=== PATIENT | male | born 1950 | race Caucasian/White ===

== ENCOUNTER 2017-02-18 10:02 | Inpatient (IN) ==
[2017-02-18] MEDS ORDERED: NS 1,000 ML IV ONE (10:14)
[2017-02-18] MEDS ORDERED: CARDIZEM IV ONE (10:14)
--- NOTE | 2017-02-18 10:34 | Diag Imaging Result Doc PS360 ---
EXAM: CHEST-PORTABLE HISTORY: CP TECHNIQUE: Portable upright COMPARISON: None. FINDINGS: The lungs are well expanded. The heart is not enlarged. The vessels are not distended. No pneumonia. No pleural effusions identified. IMPRESSION: Negative chest. Electronically signed by Theodore Chen 02/18/2017 10:32 AM
[2017-02-18 11:03] LABS: MANUAL DIFF NEEDED? NO
[2017-02-18 11:06] LABS: BASO% 0.7 % (0.0-0.8); EOS# 0.06 X1000 (0.0-0.7); HEMATOCRIT 43.6 % (42.0-52.0); HEMOGLOBIN 15.3 g/dL (14.0-18.0); LYMPH# 1.67 X1000 (1.2-3.4); LYMPH% 28.6 % (20.5-51.1); MCH 31.5 PG (27-31); MCHC 35.1 g/dL (33-37); MCV 89.7 FL (81-99); MONO# 0.79 X1000 (0.11-0.59); MONO% 13.6 % (1.7-9.3); MPV 11.2 FL (7.4-10.4); NEUT% 56.1 % (42.2-75.2); PLT 179 X1000 (130-400); RBC 4.86 XMIL (4.7-6.1)
[2017-02-18 11:23] LABS: ALBUMIN 4.2 g/dL (3.5-5.0); CALCIUM 9.1 mg/dL (8.8-10.2); POTASSIUM 3.8 mmol/L (3.5-5.1); TOTAL BILIRUBIN 1.14 mg/dL (0.20-1.00); TOTAL PROTEIN 6.9 g/dL (6.3-8.3)
[2017-02-18 11:45] LABS: INR 1.01; PROTIME 10.6 Seconds (9.2-11.7); PTT 29.6 Seconds (22.0-36.0)
--- NOTE | 2017-02-18 12:15 | PROVIDER DOCUMENTATION ---
This chart was entered by Radha Camacho Scribe, acting as scribe for Angela Mazariegos MD. HPI-Chest Pain - General Chief Complaint: Chest Pain Stated Complaint: CHEST PAIN Time Seen by Provider: 02/18/17 10:05 Source: patient Allergies/Adverse Reactions: Patient Allergies Allergy/AdvReac Type Severity Reaction Status Date / Time codeine Allergy "swell up" Verified 02/18/17 10:15 Home Medications: Home Medication List Medication Instructions Recorded Confirmed Last Taken Type Allopurinol 100 mg PO DAILY 09/02/14 02/18/17 09/06/14 07:00 History Amlodipine Besylate 5 mg PO DAILY 09/02/14 02/18/17 02/18/17 05:30 History Aspirin 81 mg PO DAILY 09/02/14 02/18/17 02/18/17 05:30 History Levothyroxine Sodium 200 mcg PO DAILY 09/02/14 02/18/17 02/17/17 History Alfuzosin HCl [Alfuzosin HCl ER] 10 mg PO DAILY 09/06/14 02/18/17 02/18/17 05: 30 History Losartan/Hydrochlorothiazide 1 each PO DAILY 02/18/17 02/18/17 02/18/17 05:30 History [Hyzaar 100-12.5 Tablet] - History of Present Illness-CP Nature of Presenting Problem: 66 yo M presents to the ER with complaint of sudden onset of chest pressure/ heaviness this morning while at work. Pt states he felt light headed and like she was going to pass out. Pt is an EMT. Denies SOB or nausea, denies any hx of a-fib or cardiac history. States he does not feel lightheaded anymore but still has chest heaviness. Quality of Pain: reports: pressure Onset/Duration: 1 hour ago Associated Symptoms: reports: diaphoresis. denies: nausea, shortness of breath Nitro Today/Relief: 0.4 mg x 1, provided by EMS Aspirin Treatment Today: 81 mg x 1, provided by EMS Prior Chest Pain/Cardiac Workup: reports: no prior chest pain, no prior cardiac workup Review of Systems - Adult - REVIEW OF SYSTEMS - ADULT Constitutional: denies: chills, fever Eyes: reports: no symptoms reported Ears, Nose, Mouth & Throat: reports: no symptoms reported Cardiovascular: reports: chest pain. denies: palpitations Respiratory: denies: cough, shortness of breath Gastrointestinal: denies: abdominal pain, diarrhea, nausea, vomiting Genitourinary: reports: no symptoms reported Musculoskeletal: reports: no symptoms reported Integumentary: reports: no symptoms reported Neurological: reports: no symptoms reported Psychiatric: reports: no symptoms reported Endocrine: reports: no symptoms reported Hematologic/Lymphatic: reports: no symptoms reported Allergic/Immunologic: reports: no symptoms reported All Other Systems: Reviewed and Negative Past History - Adult - PAST MEDICAL HISTORY-ADULT Review of Records: reports: Nursing Assessment Review, Medications Reviewed Cardiovascular: reports: HTN Respiratory: reports: sleep apnea Endocrine/Immune: reports: thyroid disorder - PRIOR SURGERIES/PROCEDURES Surgical/Procedure History: reports: hernia repair - IMMUNIZATION STATUS Childhood Immunizations: See Nurse Assessment Flu Vaccine: See Nurse Assessment Physical Exam-General - PHYSICAL EXAM-ADULT Initial Vital Signs Reviewed: Yes - CONSTITUTIONAL General Appearance: alert, no apparent distress, obese - EYES Eyes: PERRL/EOMI, pink conjunctivae - HEAD, EARS, NOSE, MOUTH & THROAT HENMT: normocephalic/atraumatic, normal ENT inspection, TMs normal, pharynx normal - NECK Neck: supple, normal inspection - RESPIRATORY Respiratory: chest non-tender, lungs clear, no respiratory distress, no accessory muscle use - CARDIOVASCULAR Cardiovascular: normal peripheral pulses, no edema, tachycardia - GASTROINTESTINAL (ABDOMEN) Abdominal Exam: normal bowel sounds, non tender, soft - MUSCULOSKELETAL Back Exam: no CVA tenderness, no vertebral tenderness Extremity: normal gait, normal inspection - SKIN Integumentary: normal color, warm/dry - NEUROLOGIC Neurologic: grossly normal, no motor/sensory deficits - PSYCHIATRIC Psych/Mental Status: normal mood/affect, normal thought content, normal thought process, oriented x 3 Progress - PLAN OF CARE/RESULTS Progress/Plan/Lab Results: Vital Signs - 8 hr 02/18/17 10:14 02/18/17 12:00 Temperature 97.5 F L Pulse Rate 137 H 60 Respiratory Rate 22 19 Blood Pressure 139/109 101/67 O2 Sat by Pulse Oximetry 98 98 Laboratory Results - last 24 hr 02/18/17 02/18/17 02/18/17 10:50 10:50 10:50 WBC RBC Hgb Hct MCV MCH MCHC RDW Std Deviation Plt Count MPV Immature Gran % (Auto) Neut % (Auto) Lymph % (Auto) Humphreys % (Auto) Eos % (Auto) Baso % (Auto) Immature Gran # (Auto) Neut # (Auto) Lymph # (Auto) Humphreys # (Auto) Eos # (Auto) Baso # (Auto) PT 10.6 INR 1.01 PTT (Actin FS) 29.6 D-Dimer Sodium Potassium Chloride Carbon Dioxide Anion Gap BUN Creatinine Estimated GFR/1.73 m2 BUN/Creatinine Ratio Glucose Calculated Osmolality Calcium Magnesium 2.0 Total Bilirubin AST ALT Alkaline Phosphatase Troponin T Bur-Y-Nltjgbqzosj Pept 10 Total Protein Albumin Globulin Albumin/Globulin Ratio 02/18/17 02/18/17 02/18/17 10:50 10:50 10:50 WBC RBC Hgb Hct MCV MCH MCHC RDW Std Deviation Plt Count MPV Immature Gran % (Auto) Neut % (Auto) Lymph % (Auto) Humphreys % (Auto) Eos % (Auto) Baso % (Auto) Immature Gran # (Auto) Neut # (Auto) Lymph # (Auto) Humphreys # (Auto) Eos # (Auto) Baso # (Auto) PT INR PTT (Actin FS) D-Dimer < 0.10 Sodium 141 Potassium 3.8 Chloride 103 Carbon Dioxide 25 Anion Gap 13 BUN 19 Creatinine 1.4 H Estimated GFR/1.73 m2 51 BUN/Creatinine Ratio 14 Glucose 97 Calculated Osmolality 283 Calcium 9.1 Magnesium Total Bilirubin 1.14 H AST 20 ALT 24 Alkaline Phosphatase 79 Troponin T < 0.010 Swv-X-Pcbusfgvezu Pept Total Protein 6.9 Albumin 4.2 Globulin 2.7 Albumin/Globulin Ratio 1.6 02/18/17 10:50 WBC 5.83 RBC 4.86 Hgb 15.3 Hct 43.6 MCV 89.7 MCH 31.5 H MCHC 35.1 RDW Std Deviation 12.9 Plt Count 179 MPV 11.2 H Immature Gran % (Auto) 0.0 Neut % (Auto) 56.1 Lymph % (Auto) 28.6 Humphreys % (Auto) 13.6 H Eos % (Auto) 1.0 Baso % (Auto) 0.7 Immature Gran # (Auto) 0.00 Neut # (Auto) 3.27 Lymph # (Auto) 1.67 Humphreys # (Auto) 0.79 H Eos # (Auto) 0.06 Baso # (Auto) 0.04 PT INR PTT (Actin FS) D-Dimer Sodium Potassium Chloride Carbon Dioxide Anion Gap BUN Creatinine Estimated GFR/1.73 m2 BUN/Creatinine Ratio Glucose Calculated Osmolality Calcium Magnesium Total Bilirubin AST ALT Alkaline Phosphatase Troponin T Rtc-Y-Kkktadecdan Pept Total Protein Albumin Globulin Albumin/Globulin Ratio Orders Category Date Time Status Cardiac Monitoring DIRECTED Care 02/18/17 10:13 Active Saline Loc NOW Care 02/18/17 10:13 Active CHEST-PORTABLE [RAD] Stat Exams 02/18/17 10:14 Completed CBC WITH ELECTRONIC DIFF [HEME] Stat Lab 02/18/17 10:50 Completed COMPREHENSIVE METABOLIC PANEL [CHEM] Stat Lab 02/18/17 10:50 Completed D-DIMER [CHEM] Stat Lab 02/18/17 10:50 Completed MAGNESIUM [CHEM] Stat Lab 02/18/17 10:50 Completed PRO B-NATRIURETIC PEPTIDE Stat Lab 02/18/17 10:50 Completed PROTIME WITH INR [COAG] Stat Lab 02/18/17 10:50 Completed PTT [COAG] Stat Lab 02/18/17 10:50 Completed TROPONIN T Stat Lab 02/18/17 10:50 Completed 0.9% Sodium Chloride Inj [Ns] 1,000 ml Med 02/18/17 10:14 Discontinued IV 999 mls/hr Diltiazem [Cardizem] Med 02/18/17 10:14 Discontinued 10 mg IV NOW ONE EKG [EKG] Stat Ther 02/18/17 10:07 Ordered EKG [EKG] Stat Ther 02/18/17 10:22 Ordered Laboratory Tests 02/18/17 02/18/17 02/18/17 10:50 10:50 10:50 WBC RBC Hgb Hct MCV MCH MCHC RDW Std Deviation Plt Count MPV Immature Gran % (Auto) Neut % (Auto) Lymph % (Auto) Humphreys % (Auto) Eos % (Auto) Baso % (Auto) Immature Gran # (Auto) Neut # (Auto) Lymph # (Auto) Humphreys # (Auto) Eos # (Auto) Baso # (Auto) PT 10.6 INR 1.01 PTT (Actin FS) 29.6 D-Dimer Sodium Potassium Chloride Carbon Dioxide Anion Gap BUN Creatinine Estimated GFR/1.73 m2 BUN/Creatinine Ratio Glucose Calculated Osmolality Calcium Magnesium 2.0 Total Bilirubin AST ALT Alkaline Phosphatase Troponin T Mkl-T-Pvkxqvnacqj Pept 10 Total Protein Albumin Globulin Albumin/Globulin Ratio 02/18/17 02/18/17 02/18/17 10:50 10:50 10:50 WBC RBC Hgb Hct MCV MCH MCHC RDW Std Deviation Plt Count MPV Immature Gran % (Auto) Neut % (Auto) Lymph % (Auto) Humphreys % (Auto) Eos % (Auto) Baso % (Auto) Immature Gran # (Auto) Neut # (Auto) Lymph # (Auto) Humphreys # (Auto) Eos # (Auto) Baso # (Auto) PT INR PTT (Actin FS) D-Dimer < 0.10 Sodium 141 Potassium 3.8 Chloride 103 Carbon Dioxide 25 Anion Gap 13 BUN 19 Creatinine 1.4 H Estimated GFR/1.73 m2 51 BUN/Creatinine Ratio 14 Glucose 97 Calculated Osmolality 283 Calcium 9.1 Magnesium Total Bilirubin 1.14 H AST 20 ALT 24 Alkaline Phosphatase 79 Troponin T < 0.010 Avk-T-Xsmhilqlvgh Pept Total Protein 6.9 Albumin 4.2 Globulin 2.7 Albumin/Globulin Ratio 1.6 02/18/17 10:50 WBC 5.83 RBC 4.86 Hgb 15.3 Hct 43.6 MCV 89.7 MCH 31.5 H MCHC 35.1 RDW Std Deviation 12.9 Plt Count 179 MPV 11.2 H Immature Gran % (Auto) 0.0 Neut % (Auto) 56.1 Lymph % (Auto) 28.6 Humphreys % (Auto) 13.6 H Eos % (Auto) 1.0 Baso % (Auto) 0.7 Immature Gran # (Auto) 0.00 Neut # (Auto) 3.27 Lymph # (Auto) 1.67 Humphreys # (Auto) 0.79 H Eos # (Auto) 0.06 Baso # (Auto) 0.04 PT INR PTT (Actin FS) D-Dimer Sodium Potassium Chloride Carbon Dioxide Anion Gap BUN Creatinine Estimated GFR/1.73 m2 BUN/Creatinine Ratio Glucose Calculated Osmolality Calcium Magnesium Total Bilirubin AST ALT Alkaline Phosphatase Troponin T Wnk-J-Pmjormelxsn Pept Total Protein Albumin Globulin Albumin/Globulin Ratio Result Diagrams: 02/18/17 10:50 02/18/17 10:50 - EKG 1 Time of EKG reading by physician:: 09:58 EKG Read and Signed by:: Lanny Vazquez EKG Interpretation (*Must complete 3 of following elements*): Abnormal Rate: 145 Rhythm: a-fib with RVR Randolph: normal QRS: RBB (incomplete) CT Interval: normal ST Wave: non-specific ST changes (ST&T wave abnormality, consider lateral ischemia) 2 Time of EKG reading by physician:: 10:12 EKG Read and Signed by:: Angela Mazariegos EKG Interpretation (*Must complete 3 of following elements*): Abnormal Rate: 91 Rhythm: normal sinus rhythm Randolph: normal QRS: normal CT Interval: normal ST Wave: non-specific ST changes - XRAY 1 XRAY Study: Chest Impression: Normal (negative chest, per radiologist) - CONSULTS/PCP/HOSPITALIST Notification #1 *Consult/PCP/Hospitalist*: Hospitalist, DR Recio Time Discussed: 12:06 Consult Disposition: Admit Departure - Departure Date of Disposition Decision: 02/18/17 Time of Disposition Decision: 12:13 DIAGNOSIS: Pre-syncope, Unstable angina, New onset a-fib Disposition: ADMITTED INPATIENT 09 Certified Medical Emergency: Emergent Condition: Fair Referrals and Follow-Ups: Ifeanyi Ramirez MD [Primary Care Provider] - - Critical Care Note This patient required my direct & personal management of CC.: No Comments: pt on presentation was in Afib with RVR converted back to NSR in its own had another brief episode of afib and currently in NSR, will hold off on cardizem given bolus of fluids and needs to be admitted for further evalaution This chart was documented by the indicated scribe, (Radha Camacho Scribe) and accurately reflects the services I performed and decisions made by me, Angela Mazariegos MD, as attested by the provider's signature.
--- NOTE | 2017-02-18 12:34 | EKG Report ---
Test Performed on : 02/18/2017 10:12:15 AM Test Reason : repeat for cp Blood Pressure : / mmHG Vent. Rate : 091 BPM Atrial Rate : 091 BPM P-R Int : 144 ms QRS Dur : 104 ms QT Int : 368 ms P-R-T Axes : 024 -06 092 degrees QTc Int : 452 ms Normal sinus rhythm. Nonspecific ST and T wave abnormality Abnormal ECG When compared with ECG of 18-FEB-2017 09:58, (Unconfirmed) Sinus rhythm. has replaced Atrial fibrillation. Vent. rate has decreased BY [address] no longer depressed in Anterior leads Nonspecific T wave abnormality no longer evident in Inferior leads T wave inversion less evident in Lateral leads Unconfirmed Result
--- NOTE | 2017-02-18 12:34 | EKG Report ---
Test Performed on : 02/18/2017 09:58:01 AM Test Reason : Chest Pain Blood Pressure : / mmHG Vent. Rate : 145 BPM Atrial Rate : 153 BPM P-R Int : 000 ms QRS Dur : 106 ms QT Int : 338 ms P-R-T Axes : 000 001 129 degrees QTc Int : 525 ms Atrial fibrillation. with rapid ventricular response. Incomplete right bundle branch block ST \T\ T wave abnormality, consider lateral ischemia Abnormal ECG When compared with ECG of 01-FEB-2014 10:55, Atrial fibrillation. has replaced Sinus rhythm. Vent. rate has increased BY [address] now depressed in Anterolateral leads Nonspecific T wave abnormality now evident in Inferior leads T wave inversion now evident in Lateral leads Unconfirmed Result
[2017-02-18] MEDS ORDERED: LOVENOX 1 MG/KG SUBQ SCH (13:00)
[2017-02-18] MEDS ORDERED: SYNTHROID PO ONE ×2 (13:02→13:45)
[2017-02-18] MEDS: LOVENOX SUBQ SCH (14:02)
[2017-02-18 14:30] LABS: BILIRUBIN URINE NEGATIVE (NEGATIVE); BLOOD URINE NEGATIVE (NEGATIVE); COLOR YELLOW; GLUCOSE URINE TRACE mg/dL (NEGATIVE); LEUKOCYTES URINE NEGATIVE (NEGATIVE); NITRITE URINE NEGATIVE (NEGATIVE); PROTEIN URINE NEGATIVE (NEGATIVE); TURBIDITY URINE CLEAR (CLEAR); URINE MICRO REVIEW NEEDED? NO; UROBILINOGEN URINE NORMAL (NORMAL)
[2017-02-18 14:31] LABS: UR EPITHELIAL CELLS <10 /HPF (<10); URINE BACTERIA NEGATIVE /HPF; URINE CULTURE NEEDED? NO; URINE RBC <10 /HPF (<10); URINE WBC <10 /HPF (<10)
[2017-02-18 14:42] LABS: URINE SOURCE CLEAN CATCH
[2017-02-18] MEDS ORDERED: ASPIRIN PO ONE (14:45)
--- NOTE | 2017-02-18 15:12 | CONSULTATION ---
DATE OF CONSULTATION: 02/18/2017 INDICATION: Chest pain. New onset atrial fibrillation. HISTORY OF PRESENT ILLNESS: Mr. 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 He apparently noted some diaphoresis at that time as well. He had an EKG performed at that time, as he works as an sales route driver and was found to be in new onset atrial fibrillation. He presented for evaluation. He has no bleeding history. He has no recent previous episodes of chest pain. He has no orthopnea. PAST MEDICAL HISTORY: 1. Significant for hypertension. 2. Gout. 3. BPH. 4. Hypothyroidism. SOCIAL HISTORY: No current tobacco use. FAMILY HISTORY: Significant for hypertension. REVIEW OF SYSTEMS: A 10 system review of systems is negative except for those things mentioned in HPI. PHYSICAL EXAMINATION: Vital signs: Afebrile. Heart rate currently is 55, blood pressure 102/64. Generally: No acute distress. HEENT: Oropharynx is moist. Normal dentition. Eye examination is pink conjunctivae. White sclerae. Neck: Examination shows no obvious thyromegaly or thyroid tenderness. Cardiovascular: He is in a regular rate and rhythm. No obvious murmurs. No S3. No lower extremity edema. Chest: Clear bilaterally. No increased work of breathing. Abdomen: Soft, nontender, nondistended. No obvious organomegaly. Skin: Warm and dry throughout without any rashes. Neurological: Moving all extremities well. Cranial nerves 2 through 12 are intact without any sensation deficits. Psychiatric: Alert, oriented, pleasant. Normal mood and affect. PERTINENT DATA: He had an EKG performed. Most recently he showed sinus rhythm, with no signs of ischemic changes or evidence for infarct. Previous EKG demonstrated atrial fibrillation, rate of 145 beats per minute. Mild ST depression is noted in the lateral leads. His chest x-ray here demonstrated that it was unremarkable. Laboratory data shows a white count of 5.8, hematocrit 43.6, platelet count 179,000. INR is 1.01. D-dimer is negative, sodium 141, potassium 3.8, BUN is 19, creatinine is 1.4, total bilirubin 1.14. Cardiac enzymes negative. Urinalysis was unremarkable. ASSESSMENT: 1. New onset atrial fibrillation. 2. Chest pain. PLAN: We will proceed with echo and myocardial perfusion imaging in the morning. I have administered a one-time dose of aspirin. He has been placed on Lovenox per the primary team. If myocardial perfusion scan is unremarkable, then he may be discharged later tomorrow. I have already discussed anticoagulation with the patient, which I believe is appropriate given his CHADS- VASc score of 2 (age of 66 and hypertension). Risks, benefits and alternatives to anticoagulation have been discussed with the patient. He agrees to proceed. Likely we would choose Eliquis and discontinue the aspirin long-term if the nuclear scan is unremarkable. We will decide on rate control with medications tomorrow. His heart rate may be artificially slowed secondary to the medication he received here in the ER. cc: Jose Cruz Zamarripa MD
[2017-02-18] MEDS ORDERED: TYLENOL PO PRN (15:51)
[2017-02-18] MEDS ORDERED: ZOFRAN IV PRN (15:51)
[2017-02-18 16:06] LABS: FREE T4 1.27 ng/dL (0.93-1.70)
[2017-02-18 16:33] LABS: UR CREAT RANDOM 74.6 mg/dL (14-26)
[2017-02-18] MEDS: PRILOSEC PO SCH (20:14)
--- NOTE | 2017-02-18 20:53 | HISTORY AND PHYSICAL ---
PRIMARY CARE PROVIDER: Dr. Ifeanyi Ramirez. CHIEF COMPLAINT: [place] like something was sitting on his chest. Got lightheaded and sweaty, with shortness of breath. HISTORY OF PRESENT ILLNESS: Mr. Tony Case is a 66-year-old morbidly obese, male with a medical history of obstructive sleep apnea who wears CPAP, hypertension, but essentially no other medical history. According to him and his , he has noticed more shortness of breath over the past week with lower extremity swelling. He went to Dr. Ramirez's who ordered an echocardiogram which has not been performed yet. He is retired and he was doing some work with EMS [facility] and apparently they were outside [facility] and the ambulance and he felt like he got too hot. He came inside and felt like something was sitting on his chest. He got lightheaded, but did not pass out, felt like he could not catch his breath and he was diaphoretic. The EMS placed him on a bus driver/monitor which showed atrial fibrillation with RVR and he was brought via EMS. Apparently when he is in the ER, Cardizem was ordered, but not administered. He went into atrial fibrillation with RVR with a rate of up to 130s at 2 different times, but converted on his own to normal sinus rhythm in the 60s. His blood pressure is maintained in low 100s. He denies any fever or chills. Otherwise, no other complaints. He just has over the past week started feeling more weak and short of breath with lower extremity swelling. We will admit to [facility] and consult Cardiology. PAST MEDICAL HISTORY: 1. Obstructive sleep apnea on CPAP. 2. Hypertension. 3. Benign prostatic hypertrophy. 4. Hypothyroidism. He also states that he has been out of his Synthroid 200 mcg for the last 2 days. SURGICAL HISTORY: A lesion on the right leg removed. Umbilical hernia repair in 1977. Recently an ORIF of the left ankle. SOCIAL HISTORY: He uses smokeless tobacco, 1 can every 3 days. Denies alcohol or illicit drug use. 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 He is . FAMILY HISTORY: Father at the age of 67 due to an acute DC. Mother at 76 due to respiratory failure. Otherwise, no other medical history in the family. REVIEW OF SYSTEMS: Fourteen point review of systems were complete and all were negative except for those mentioned above HPI. He denies any complaints at this time. ALLERGIES: Codeine. HOME MEDICATIONS: 1. Alfuzosin 10 HCL 10 mg p.o. daily. 2. Allopurinol 100 mg p.o. daily. 3. Amlodipine besylate 5 mg p.o. daily. 4. Aspirin 81 mg p.o. daily. 5. Synthroid 200 mcg p.o. daily. 6. Losartan hydrochlorothiazide 1 tab 100 mg-12.5 mg p.o. daily. PHYSICAL EXAMINATION: VITAL SIGNS: Temperature 97.5 degrees, heart rate 60. When he was in atrial fibrillation he went up to 137 as documented. Blood pressure 101/67, respiratory rate 19, O2 saturation 98% on room air. He is 5 feet 7 inches tall, 280 pounds, BMI 43.9. GENERAL: Mr. Tony Case is a 66-year-old male, he is in no acute distress. He is able to answer questions appropriately. HEENT: Atraumatic, normocephalic. Pupils equal, round, reactive to light. Extraocular movements intact. Mucous membranes moist. NECK: No JVD or carotid bruits noted at 45 degree angle. CARDIOVASCULAR: S1, S2. Regular rate and rhythm. No rubs, gallops, or murmurs. PULMONARY: Clear to auscultation. Bilateral breath sounds. No accessory muscle use or work of breathing noted. GI: Round, obese, soft, nontender. Positive bowel sounds x4. EXTREMITIES: +1 lower extremity knee to foot edema noted. He has got +2 dorsalis and radial pulses. NEUROLOGIC: Alert and oriented x4. Moves all extremities equally. SKIN: Warm, dry, intact. LABORATORY DATA: White blood cells 5000, hemoglobin 15, hematocrit 43, platelet count 179,000. INR 1.06. PTT is 29.6. D-dimer less than 0.1, sodium 141, potassium 3.8, BUN 19, creatinine 1.4. Glucose 97, magnesium 2, total bilirubin is 1.14. AST 20, ALT 24. Troponin less than 0.01. ProBNP 10. IMAGING: EKG most recently showed a normal sinus rhythm with a rate of 91, QTc is 452. On admit he had atrial fibrillation with RVR rate of 145. Chest x-ray negative for any acute findings. The heart is not enlarged. ASSESSMENT AND PLAN: 1. New onset paroxysmal atrial fibrillation with rapid ventricular response, now in sinus rhythm without chemical conversion. Apparently, he when and atrial fibrillation 2 different times. We will consult Cardiology. Cardiac enzymes are negative. It does not appear that he has enlarged heart on the chest x-ray. ProBNP is normal. Electrolytes: Potassium 3.8, magnesium 2. I will go ahead and order weight-based Lovenox q.12 hours and follow up with Cardiology recommendations. We will transfer to [facility]. 2. History of hypertension, currently his blood pressure is on the low side in the low 100s. At home he takes amlodipine 5 mg p.o. daily. He also takes a Hyzaar daily. We will hold the Hyzaar and monitor blood pressure closely. 3. Hypothyroidism. He has been without his Synthroid for 2 days now. I will give a dose today and resume it daily. Follow up with thyroid stimulating hormones and T4. 4. Benign prostatic hypertrophy. Continue home medications. 5. Obstructive sleep apnea. Continue with nightly CPAP. 6. Tobacco abuse cessation discussed. 7. Morbid obesity with a body mass index of 43.9, diet and exercise recommended. 8. Gastrointestinal prophylaxis. Proton pump inhibitor. Dictated by LORA Muñoz for Barbara Recio MD cc: LORA Muñoz MD Gregory S. Cheatham, MD The patient was seen and examined by me. I agree with the assessment and plan as dictated. [facility]
[2017-02-19] MEDS: LOVENOX SUBQ SCH ×2 (04:23→16:09)
[2017-02-19 05:04] LABS: MANUAL DIFF NEEDED? NO
[2017-02-19 05:07] LABS: BASO% 0.7 % (0.0-0.8); EOS% 1.7 % (0.0-10.0); HEMATOCRIT 42.2 % (42.0-52.0); HEMOGLOBIN 14.4 g/dL (14.0-18.0); LYMPH% 35.4 % (20.5-51.1); MCHC 34.1 g/dL (33-37); MCV 90.9 FL (81-99); MONO# 0.78 X1000 (0.11-0.59); MONO% 13.2 % (1.7-9.3); MPV 11.4 FL (7.4-10.4); PLT 174 X1000 (130-400); RBC 4.64 XMIL (4.7-6.1)
[2017-02-19 05:20] LABS: INR 1.03; PROTIME 10.8 Seconds (9.2-11.7); PTT 33.1 Seconds (22.0-36.0)
[2017-02-19 05:25] LABS: AGAP 11; ALKALINE PHOSPHATASE 74 U/L (32-122); BUN 22 mg/dL (8-22); CALCIUM 8.8 mg/dL (8.8-10.2); CHLORIDE 103 mmol/L (98-107); COSMO 289; GOT 16 U/L (10-34); GPT 21 U/L (10-44); HDL 41 mg/dL (35-55); LDL 80 mg/dL; MAGNESIUM 1.9 mg/dL (1.5-2.7); POTASSIUM 3.8 mmol/L (3.5-5.1); SODIUM 143 mmol/L (136-145); TCO2 29 mmol/L (25-35); TOTAL BILIRUBIN 1.07 mg/dL (0.20-1.00); TOTAL PROTEIN 6.3 g/dL (6.3-8.3); TRIGLYCERIDES 180 mg/dL (39-160); VLDL 36 mg/dL
--- NOTE | 2017-02-19 07:10 | Diag Imaging Result Doc PS360 ---
EXAM: CHEST-PORTABLE HISTORY: sob TECHNIQUE: AP portable at 0500 COMMENT: There is no evidence of acute cardiac or pulmonary disease. Compared to 02/18/2017 there is been no significant change in the appearance of the chest. IMPRESSION: Stable chest. Electronically signed by Gume Chandler 02/19/2017 7:08 AM
--- NOTE | 2017-02-19 07:23 | EKG Report ---
Test Performed on : 02/19/2017 06:15:49 AM Test Reason : afib, cp Blood Pressure : / mmHG Vent. Rate : 048 BPM Atrial Rate : 048 BPM P-R Int : 188 ms QRS Dur : 112 ms QT Int : 448 ms P-R-T Axes : 046 014 074 degrees QTc Int : 400 ms Sinus bradycardia. Incomplete right bundle branch block Cannot rule out Anterior infarct , age undetermined Abnormal ECG When compared with ECG of 18-FEB-2017 10:12, (Unconfirmed) Vent. rate has decreased BY 43 BPM QT has shortened Confirmed by Pearl Anthony MD ([id number]) on 02/19/2017 12:28:24 PM
--- NOTE | 2017-02-19 08:57 | PROGRESS NOTE ---
DATE: 02/19/2017 SUBJECTIVE: SUBJECTIVE: Patient reports he has been doing well. No chest pain. No heart racing overnight. PHYSICAL EXAMINATION: Vital signs: Afebrile. His heart rate has been in the 40s to 50s. His blood pressure is 127/71. General: No acute distress. Cardiovascular: Regular rate and rhythm. No murmurs. No S3. He has no S4. No lower extremity edema. Chest: Clear bilaterally. No increased work of breathing. Abdomen: Soft, nontender. PERTINENT DATA: His EKG is unremarkable showing sinus rhythm. His chest x-ray demonstrates no evidence of acute findings. Notably, his rate on his EKG was 48 beats per minute. He has a normal AL interval and a normal QT interval. White count 5.9, hematocrit 42.2, platelet count 174,000. His sodium is 143. Potassium is 3.8. BUN 22, creatinine 1.3. ASSESSMENT: 1. Atrial fibrillation. 2. Chest pain. PLAN: Patient is undergoing an echocardiogram and will have myocardial perfusion imaging today. Based on the results of those testings, hopefully, we will be able to discharge the patient if they are adequate. Likely plan will be to discharge him on Eliquis given his CHADS-VASc score being elevated for age and hypertension. Risks, benefits, and alternatives of the anticoagulation have already been discussed with the patient and he agrees to proceed. cc: Jose Cruz Zamarripa MD
[2017-02-19] MEDS ORDERED: UROXATRAL PO SCH (09:00)
[2017-02-19] MEDS ORDERED: SYNTHROID PO SCH (09:00)
[2017-02-19] MEDS ORDERED: NORVASC PO SCH (09:00)
[2017-02-19] MEDS ORDERED: ASPIRIN PO SCH (09:00)
[2017-02-19] MEDS ORDERED: LEXISCAN ONE (10:55)
[2017-02-19] MEDS: PRILOSEC PO SCH (12:30)
--- NOTE | 2017-02-19 14:30 | Diag Imaging Result Document ---
PROCEDURE NAME: MYOCARDIAL PERF SCAN, STR/REST - 02/19/2017 INDICATION: Chest pain. PROCEDURES PERFORMED: 1. One-day stress rest myocardial perfusion imaging. 2. Lexiscan stress. PROCEDURE IN DETAIL: Mr. Case was brought to the nuclear laboratory and had a resting study with injection of 15.5 mCi of technetium-99m sestamibi to usual imaging protocol utilized. Subsequently, was brought back and had a Lexiscan stress. At peak stress, was injected with 45.3 mCi of technetium-99m sestamibi with usual imaging protocol utilized. FINDINGS: LEXISCAN STRESS RESULTS: 1. Baseline EKG shows sinus bradycardia at 46 beats per minute. 2. Lexiscan stress did not demonstrate any clear evidence of ischemic related EKG changes or significant arrhythmias. PERFUSION IMAGING RESULTS: 1. No evidence of abnormal extracardiac uptake. 2. TID ratio of 0.90. 3. Perfusion imaging demonstrates a small size, mild intensity, fixed defect essentially at the apex. This is most likely suggestive of soft tissue attenuation artifact/apical thinning artifact. No evidence of ischemia on this study. 4. Normal ejection fraction of 70%. End-diastolic volume 122, end-systolic volume of 37. Normal wall motion. cc: Jose Cruz Zamarripa MD
[2017-02-19 15:17] VITALS: BP 107/55
--- NOTE | 2017-02-19 15:34 | EKG Report ---
Test Performed on : 02/19/2017 2:05:41 PM Test Reason : AFIB C RVR Blood Pressure : / mmHG Vent. Rate : 048 BPM Atrial Rate : 048 BPM P-R Int : 174 ms QRS Dur : 110 ms QT Int : 430 ms P-R-T Axes : 044 012 065 degrees QTc Int : 384 ms Sinus bradycardia. Nonspecific T wave abnormality Abnormal ECG When compared with ECG of 19-FEB-2017 06:15, No significant change was found Confirmed by Pearl Anthony MD ([id number]) on 02/20/2017 8:34:46 AM
--- NOTE | 2017-02-19 15:59 | ECHO REPORT ---
ORDER DATE: 02/19/2017 INDICATION: Atrial fibrillation, chest pain. FINDINGS: 1. Right atrium is mildly enlarged at 4.1 cm. 2. Mild tricuspid regurgitation. RV systolic pressure of 33. 3. Normal RV size and systolic function. 4. No significant pulmonic insufficiency. 5. Normal left atrial size at 3.8 cm. 6. No mitral prolapse. Mild mitral regurgitation. 7. Normal LV size, end-diastolic dimension of 5.2. Normal wall thicknesses with a posterior and interventricular septal wall thickness 0.9 cm each. Normal LV systolic function. Estimated EF 60% with normal wall motion. 8. Aortic valve opens well. No evidence of stenosis or insufficiency. 9. Aorta appears normal in visualized segments. 10. No pericardial effusion seen. cc: Jose Cruz Zamarripa MD
[2017-02-19] MEDS ORDERED: ELIQUIS PO SCH (21:00)
--- NOTE | 2017-02-20 15:03 | Extremity Venous Study ---
PROCEDURE NAME: Venous U/S Bilateral Legs - 02/18/2017 STUDY: Bilateral lower extremity venous duplex and color flow imaging study using the [employer] vivid E9 ultrasound system with an 9LD transducer. AGE/SEX: A 66-year-old male. [employer] INSTRUCTOR: July Damian RVT INDICATIONS: Swelling of the limb. ICD-10: M79.89. FINDINGS: Right common femoral vein and its branches, deep and superficial femoral veins were satisfactorily imaged. They had flow through them and were compressible. Right popliteal vein and the deep veins below the right knee were all compressible and have flow through them. The superficial veins of the right lower extremity were compressible throughout their length. The left common femoral vein and its branches, deep and superficial femoral veins were also satisfactorily imaged. They had flow through them and were compressible. Left popliteal vein and the deep veins below the left knee were all compressible and had flow through them. The superficial veins the left lower extremity were compressible throughout their length. INTERPRETATION: No evidence of acute deep or superficial venous thrombosis of the bilateral lower extremities. cc: MD Jodi Brantley CRNP
--- NOTE | 2017-02-20 15:20 | DISCHARGE SUMMARY ---
ADMISSION DATE: 02/18/2017 DISCHARGE DATE: 02/19/2017 CONSULTATIONS: Dr. Jose Cruz Zamarripa with Cardiology. PERTINENT PROCEDURES: Lexiscan that was negative. Initial EKG that showed atrial fibrillation with RVR and an incomplete right bundle branch block. Followup EKG that showed sinus bradycardia at a rate of 48 that showed an incomplete right bundle branch block. DISCHARGE DIAGNOSES: 1. New-onset atrial fibrillation with rapid ventricular response, now in sinus rhythm without chemical conversion. Cardiac enzymes negative. The patient had a negative Lexiscan. Because of CHADS-VASc score of 2, he will be discharged on Eliquis. The patient now , since his conversion, has been sinus bradycardic, anywhere from 48 to 50s. Hemodynamically stable. 2. Hypertension, although on admission blood pressure was slightly on the lower side in the 100s. His Hyzaar was held and he was continued on his Norvasc. Stable. 3. Hypothyroidism. Continue Synthroid. 4. Benign prostatic hypertrophy. Continue home medications. 5. Obstructive sleep apnea. Continue nightly CPAP. 6. Tobacco abuse. Cessation discussed. 7. Morbid obesity with a body mass index of 43.9. Diet and exercise recommended. HOSPITAL COURSE: Briefly, Mr. Case is a 66-year-old morbidly obese male with a medical history of obstructive sleep apnea who wears CPAP nightly, hypertension, BPH, and hypothyroidism. The patient stated he noticed more shortness of breath over the span of a week with lower-extremity swelling. He went to Dr. Ramirez, who ordered an echocardiogram, which had not been performed yet. He is retired. 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 He felt like he got too hot. He came inside, felt like something was sitting on his chest, and he got lightheaded, but did not pass out. He felt like he could not catch his breath. He was diaphoretic. EMS placed him on a manager money that showed atrial fibrillation with RVR. He was brought in via EMS. Apparently, in the ED, Cardizem was ordered, but not administered. His rate went up to the 130s two different times, but converted on his own to a normal sinus rhythm in the 60s. His blood pressure remained in the low 100s. His only complaint was that over the past week he started to feel weak and short of breath with lower extremity swelling. [facility] for [facility]. His Hyzaar was held secondary to blood pressures being in the 100s and he was started on weight- based Lovenox q.12 hours. The patient underwent a negative Lexiscan. Throughout his admission, he remained sinus burton, but hemodynamically stable. He does have a CHADS-VASc score of 2, for which Dr. Zamarripa discuss anticoagulation. He has agreed to start Eliquis. He has also undergone an echocardiogram that we do not have the official results for, and his aspirin has been discontinued. He has not been placed on any rate control medication at this time secondary to his bradycardia. VITAL SIGNS AT TIME OF HIS DISCHARGE: Temperature was 98.1 degrees, heart rate 52, respirations 12, and blood pressure was 127/71. The O2 was 96% on room air. DISCHARGE DIET: Healthy Heart. DISCHARGE MEDICATIONS: 1. Alfuzosin HCL ER 10 mg p.o. daily. 2. Allopurinol 100 mg p.o. daily. 3. Norvasc 5 mg p.o. daily. 4. Eliquis 5 mg p.o. b.i.d. 5. Synthroid 200 mcg p.o. daily. 6. Hyzaar 100/12.5 tablet 1 each p.o. daily. FOLLOWUP: The patient is being discharged home with self care, where he will continue to use his CPAP nightly and follow the Healthy Heart diet. He has been educated on diet and exercise as well as smoking cessation as well as the means to quit, and to follow up with Dr. Jose Cruz Zamarripa in 1 month as well as Dr. Ifeanyi Ramirez in 2 weeks. To return to the ED for any worsening of symptoms. DISCHARGE TIME: Thirty five minutes. Dictated by LORA Hill for Benji Marin MD cc: MD Ifeanyi Leong MD [facility] CENTERTracy
== END 2017-02-19 16:35 | disposition home or self-care (01) ==
LOC: SUPCPDRO → ED 10:02 → SUATTDRO 13:14 → EDIPHOLD 13:14 → 3S 14:21
PROVIDERS: ATTEND Internal Medicine